=== PATIENT | male | born 1985 | race Caucasian/White ===

== ENCOUNTER 2018-06-03 17:30 | Emergency (ER) | payer BC ==
[~2018-06-03] VITALS: Ht 188 cm; Wt 68.0 kg
[~2018-06-03 17:30] MED LIST: CEPH500 PO; CYCL10 PO; HYDACE5 PO; NAPR500 PO
[2018-06-03] MEDS ORDERED: Floxin10 ML RIGHTEAR (18:04)
== END 2018-06-03 18:09 | disposition home or self-care (01) ==
LOC: ER 17:30
DX: H60.91 Unspecified otitis externa, right ear (principal); F17.200 Nicotine dependence, unspecified, uncomplicated
CPT/HCPCS: 69210; 99282

== ENCOUNTER 2018-10-28 21:37 | Emergency (ER) | payer BC ==
[~2018-10-28] VITALS: Ht 188 cm; Wt 69.8 kg
[~2018-10-28 21:37] MED LIST changes: +Floxin10 ML RIGHTEAR
[2018-10-28] MEDS ORDERED: HM DOUBLE ANT28.4 GM TOP (22:36)
[2018-10-28] MEDS ORDERED: Norco 5-325 Ta1 EACH PO (22:37)
== END 2018-10-28 23:13 | disposition home or self-care (01) ==
LOC: ER 21:37
DX: T20.00XA Burn of unspecified degree of head, face, and neck, unspecified site, initial encounter (principal); T31.11 Burns involving 10-19% of body surface with 10-19% third degree burns; J45.909 Unspecified asthma, uncomplicated; F17.210 Nicotine dependence, cigarettes, uncomplicated; X08.8XXA Exposure to other specified smoke, fire and flames, initial encounter
CPT/HCPCS: 16030; 90471; 90714; 96372-59; 99283-25; A9270; A9270-GY; J1170

== ENCOUNTER 2019-03-18 20:34 | Emergency (ER) | payer BC ==
[~2019-03-18] VITALS: Ht 188 cm; Wt 70.3 kg
[~2019-03-18 20:34] MED LIST changes: +HM DOUBLE ANT28.4 GM TOP; +Norco 5-325 Ta1 EACH PO
[2019-03-18] MEDS ORDERED: Norco 5-325 Ta1 EACH PO (21:32)
[2019-03-18] MEDS ORDERED: Amoxicillin875 MG PO (21:32)
== END 2019-03-18 21:57 | disposition home or self-care (01) ==
LOC: ER 20:34
DX: K04.7 Periapical abscess without sinus (principal); G43.909 Migraine, unspecified, not intractable, without status migrainosus; J45.909 Unspecified asthma, uncomplicated; F17.200 Nicotine dependence, unspecified, uncomplicated
CPT/HCPCS: 96372; 99282-25; J1885; J2765; Q0163

== ENCOUNTER 2019-08-27 01:03 | Emergency (ER) | payer BC ==
[~2019-08-27] VITALS: Ht 188 cm; Wt 68.0 kg
[~2019-08-27 01:03] MED LIST changes: +Amoxicillin875 MG PO
[2019-08-27] MEDS ORDERED: Esgic Tablet1 EACH PO (02:20)
== END 2019-08-27 02:29 | disposition home or self-care (01) ==
LOC: ER 01:03
DX: R51 Headache (principal); F17.200 Nicotine dependence, unspecified, uncomplicated
CPT/HCPCS: 99283

== ENCOUNTER 2019-09-05 12:49 | Emergency (ER) | payer BC ==
[~2019-09-05] VITALS: Ht 188 cm; Wt 70.3 kg
[~2019-09-05 12:49] MED LIST changes: +Esgic Tablet1 EACH PO
[2019-09-05] MEDS ORDERED: HYDR1TAB94 PO (13:19)
== END 2019-09-05 13:40 | disposition home or self-care (01) ==
LOC: ER 12:49
DX: K08.89 Other specified disorders of teeth and supporting structures (principal); F17.210 Nicotine dependence, cigarettes, uncomplicated
CPT/HCPCS: 99282

== ENCOUNTER 2022-03-22 11:36 | Emergency (ER) | payer BC ==
[~2022-03-22] VITALS: Ht 188 cm; Wt 75.3 kg
[~2022-03-22 11:36] MED LIST changes: +HYDR1TAB94 PO
[2022-03-22] MEDS ORDERED: Ultram50 MG PO (12:12)
[2022-03-22] MEDS ORDERED: AMOCLA875 PO (12:12)
== END 2022-03-22 12:21 | disposition home or self-care (01) ==
LOC: ER 11:36
DX: K04.7 Periapical abscess without sinus (principal); F17.210 Nicotine dependence, cigarettes, uncomplicated
CPT/HCPCS: 99282

== ENCOUNTER 2024-08-03 12:34 | Emergency (ER) | payer SELFPAY ==
[~2024-08-03] VITALS: Ht 188 cm; Wt 78.0 kg
[~2024-08-03 12:34] MED LIST changes: +AMOCLA875 PO; +Ultram50 MG PO
[2024-08-03] MEDS ORDERED: Ondansetron HCl 2 MG / ML 2ML Vial IV ONE (13:10)
[2024-08-03] MEDS ORDERED: NS 1,000 ML IV SCH (13:10)
[2024-08-03] MEDS ORDERED: Ketorolac Tromethamine 15mg Vial IV ONE (13:10)
[2024-08-03 13:31] LABS: BASOPHILS ABSOLUTE AUTO 0.05 K/mm3 (0.00-0.23); BASOPHILS PERCENT AUTO 1 % (0-2); EOSINOPHILS ABSOLUTE AUTO 0.03 K/mm3 (0.00-0.68); EOSINOPHILS PERCENT AUTO 0 % (0-6); Hematocrit 44.4 % (37.0-53.0); Hemoglobin 15.5 g/dL (13.5-17.5); IMMATURE GRAN ABSOLUTE AUTO 0.02 K/mm3 (0.00-0.10); IMMATURE GRAN PERCENT AUTO 0 % (0-1); LYMPHOCYTES ABSOLUTE AUTO 1.02 K/mm3 (0.84-5.20); LYMPHOCYTES PERCENT AUTO 11 % (21-46); MONOCYTES ABSOLUTE AUTO 1.21 K/mm3 (0.16-1.47); MONOCYTES PERCENT AUTO 13 % (4-13); Mean Corpuscular HGB 30.2 pg (26.0-34.0); Mean Corpuscular HGB Conc 34.9 g/dL (31.5-36.5); Mean Corpuscular Volume 87 fL (80-100); Mean Platelet Volume 10.9 fL (9.1-12.4); NEUTROPHILS ABSOLUTE AUTO 7.12 K/mm3 (1.96-9.15); NEUTROPHILS PERCENT AUTO 75 % (41-73); Platelet Count 241 K/mm3 (150-400); RDW Coefficient Variation 11.9 % (11.7-14.2); RDW Standard Deviation 37.8 fL (35.1-46.3); Red Blood Cell Count 5.13 M/mm3 (4.30-5.90); White Blood Cell Count 9.45 K/mm3 (4.00-11.30)
[2024-08-03 13:52] LABS: Albumin, Blood 3.5 g/dL (3.4-5.0); Albumin/Globulin Ratio 0.8 (0.8-1.8); Bilirubin, Total 0.5 mg/dL (0.1-1.0); Bun/Creatinine Ratio 24.3 (12.0-20.0); Calcium, Blood 9.4 mg/dL (8.5-10.1); Creatinine, Blood 0.78 mg/dL (0.60-1.20); Globulin, Blood 4.4 g/dL (2.2-4.0); Potassium, Blood 4.1 mmol/L (3.5-5.5); Total Protein, Blood 7.9 g/dL (6.4-8.2)
[2024-08-03 16:00] VITALS: BP 115/76
[2024-08-03 16:42] LABS: INFLUENZA A AG Negative (NEGATIVE)
[2024-08-03 16:43] LABS: CORONAVIRUS COVID-19 AG Negative (NEGATIVE); INFLUENZA B AG Negative (NEGATIVE)
[2024-08-03] MEDS ORDERED: RX Prepack 2 Tabs Ondansetron ODT 4MG UD ONE (18:15)
[2024-08-03] MEDS ORDERED: ONDA4ODT MM (18:38)
== END 2024-08-03 18:44 | disposition home or self-care (01) ==
LOC: ER 12:34
PROVIDERS: Physician Assistant; Student in an Organized Health Care Education/Training Program
DX: K52.9 Noninfective gastroenteritis and colitis, unspecified (principal); J45.909 Unspecified asthma, uncomplicated; Z79.2 Long term (current) use of antibiotics; Z79.899 Other long term (current) drug therapy; F17.210 Nicotine dependence, cigarettes, uncomplicated; Z59.89 Other problems related to housing and economic circumstances
CPT/HCPCS: 80053; 83605; 83690; 85025; 87428-QW; 96374; 96375; 99283-25; A9270; J1885; J2405; J7030

== ENCOUNTER 2024-08-07 15:52 | Emergency (ER) | payer SELFPAY ==
[~2024-08-07] VITALS: Ht 188 cm; Wt 77.1 kg
[~2024-08-07 15:52] MED LIST changes: +ONDA4ODT MM
[2024-08-07 16:50] LABS: BASOPHILS ABSOLUTE AUTO 0.03 K/mm3 (0.00-0.23); BASOPHILS PERCENT AUTO 0 % (0-2); EOSINOPHILS PERCENT AUTO 0 % (0-6); Hematocrit 40.2 % (37.0-53.0); Hemoglobin 13.8 g/dL (13.5-17.5); IMMATURE GRAN ABSOLUTE AUTO 0.03 K/mm3 (0.00-0.10); IMMATURE GRAN PERCENT AUTO 0 % (0-1); LYMPHOCYTES ABSOLUTE AUTO 0.62 K/mm3 (0.84-5.20); LYMPHOCYTES PERCENT AUTO 7 % (21-46); MONOCYTES ABSOLUTE AUTO 0.62 K/mm3 (0.16-1.47); MONOCYTES PERCENT AUTO 7 % (4-13); Mean Corpuscular HGB 29.9 pg (26.0-34.0); Mean Corpuscular HGB Conc 34.3 g/dL (31.5-36.5); Mean Corpuscular Volume 87 fL (80-100); Mean Platelet Volume 9.9 fL (9.1-12.4); NEUTROPHILS ABSOLUTE AUTO 7.18 K/mm3 (1.96-9.15); NEUTROPHILS PERCENT AUTO 85 % (41-73); Platelet Count 342 K/mm3 (150-400); RDW Coefficient Variation 12.1 % (11.7-14.2); RDW Standard Deviation 38.8 fL (35.1-46.3); Red Blood Cell Count 4.62 M/mm3 (4.30-5.90); White Blood Cell Count 8.48 K/mm3 (4.00-11.30)
[2024-08-07 17:18] LABS: Source, Urine Clean Catch
[2024-08-07 17:21] LABS: Appearance, Urine Clear (Clear); Blood, Urine 1+ (Neg); Color, Urine Yellow (P-Yellow); Glucose Qualitative, Urine Neg (Neg); Ketones, Urine Neg (Neg); Leukocyte Esterase, Urine 1+ (Neg); Nitrite, Urine Neg (Neg); Protein, Urine 3+ (Neg); Urobilinogen, Urine 4+ (Normal); pH, Urine 6.5 (5.0-8.0)
[2024-08-07 17:24] LABS: Free Thyroxine 1.1 ng/dL (0.70-1.60)
[2024-08-07 17:27] LABS: Bilirubin, Urine 1+ (Neg)
[2024-08-07 17:27] LABS: Adenovirus Not Detected (NOT DETECT); Bordetella pertussis Not Detected (NOT DETECT); Chlamydophila pneumoniae Not Detected (NOT DETECT); Coronavirus 229E Not Detected (NOT DETECT); Coronavirus HKU1 Not Detected (NOT DETECT); Coronavirus NL63 Not Detected (NOT DETECT); Coronavirus OC43 Not Detected (NOT DETECT); Human Metapneumovirus Not Detected (NOT DETECT); Human Rhinovirus/Enterovirus Not Detected (NOT DETECT); Influenza A/2009-H1 Not Detected (NOT DETECT); Influenza A/H1 Not Detected (NOT DETECT); Influenza A/H3 Not Detected (NOT DETECT); Influenza B Not Detected (NOT DETECT); Mycoplasma pneumoniae Not Detected (NOT DETECT); Parainfluenza Virus 1 Not Detected (NOT DETECT); Parainfluenza Virus 2 Not Detected (NOT DETECT); Parainfluenza Virus 3 Not Detected (NOT DETECT); Parainfluenza Virus 4 Not Detected (NOT DETECT); Respiratory Syncytial Virus Not Detected (NOT DETECT); SARS-Cov-2 (COVID-19), BioFire Not Detected (NOT DETECT)
[2024-08-07 17:28] LABS: Thyroid Stimulating Hormone 2.23 uIU/mL (0.360-4.800); Triiodothyronine, Free 2.13 pg/mL (2.18-3.98)
[2024-08-07 17:28] LABS: Bacteria Few /hpf; Hyaline Casts 0-2 /lpf (0-2)
[2024-08-07 17:29] LABS: Mucus Light (0-Heavy); Squamous Epithelial Cells Few /hpf (Few)
[2024-08-07 17:41] LABS: Albumin, Blood 2.8 g/dL (3.4-5.0); Albumin/Globulin Ratio 0.6 (0.8-1.8); Bilirubin, Total 0.5 mg/dL (0.1-1.0); Bun/Creatinine Ratio 19.7 (12.0-20.0); Calcium, Blood 9.4 mg/dL (8.5-10.1); Creatinine, Blood 0.87 mg/dL (0.60-1.20); Globulin, Blood 4.8 g/dL (2.2-4.0); Potassium, Blood 4.3 mmol/L (3.5-5.5); Total Protein, Blood 7.6 g/dL (6.4-8.2)
[2024-08-07] MEDS ORDERED: Amoxicillin/Clavulanate K 875 MG Tab PO ONE (19:25)
[2024-08-07] MEDS ORDERED: AMOCLA875 PO (19:27)
[2024-08-07] MEDS ORDERED: DOXY100 PO (19:27)
[2024-08-07 19:30] VITALS: BP 119/81
[2024-08-07] MEDS ORDERED: Doxycycline Hyclate 100 MG TAB PO ONE (19:30)
== END 2024-08-07 19:47 | disposition home or self-care (01) ==
LOC: ER 15:52
PROVIDERS: Student in an Organized Health Care Education/Training Program
DX: J18.9 Pneumonia, unspecified organism (principal); E87.1 Hypo-osmolality and hyponatremia; J45.909 Unspecified asthma, uncomplicated; F17.210 Nicotine dependence, cigarettes, uncomplicated; Z59.71 Insufficient health insurance coverage
CPT/HCPCS: 0202U; 71046; 80053; 81001; 83605; 84439; 84443; 84481; 85025; 87086; 99283-25; A9270